=== PATIENT | female | born 2005 | race Caucasian/White ===

== ENCOUNTER 2023-09-12 12:14 | Emergency (ER) | payer OTHER, SELFPAY ==
[2023-09-12 12:18] VITALS: PULSE 116; RESP 19; O2SAT 99
--- NOTE | 2023-09-12 12:18 | DI.CT.S_ITS ---
PROCEDURE: CT HEAD/BRAIN WO CON INDICATIONS: New onset seizure TECHNIQUE: Noncontrast 4.5 mm thick angled axial sections acquired from the foramen magnum to the vertex, with coronal and sagittal reformats. For radiation dose reduction, the following was used: automated exposure control, adjustment of mA and/or kV according to patient size. COMPARISON: None. FINDINGS: Image quality: Diagnostic. CSF spaces: Basal cisterns are patent. No extra-axial fluid collections. Ventricles are normal in size and shape. Brain: No midline shift. No intracranial masses or hemorrhage. [place]-white matter interface is normal. Skull and face: Calvarium and visualized facial bones are intact, without suspicious lesions. Sinuses: Visualized sinuses and mastoids are clear. IMPRESSION: No acute intracranial pathology. Dictated by: Dell Garcia M.D. on 09/12/2023 at 13:37 Approved by: Dell Garcia M.D. on 09/12/2023 at 13:38
[2023-09-12 12:19] VITALS: BP 139/85; PULSE 115; PULSE 117; RESP 17; RESP 20; O2SAT 99; BMI 19.1
[2023-09-12 12:30] VITALS: PULSE 112; RESP 20; O2SAT 98
--- NOTE | 2023-09-12 12:31 | PC.NURSE ---
The patient was out late last night drinking and last had food at 2am. She was [place] the [employer] [place] when sig other noticed her suddenly have a smile and then started shaking. He lowered her to the ground and her shaking lasted 30-40 seconds. She regained herself and started the same episode for another 30-40 seconds. The patient denies hx of seizures. She states that she has not felt well for the last couple of days since she flew in from [place]. She states the new thing was a lip injection a couple of weeks ago that shes had before in the past with the same place and formula, with not bad reactions.
[2023-09-12 12:40] LABS: Add Manual Diff / Slide Review NO; Basophils Absolute Auto 0 /uL (0-100); Basophils Percent Auto 0.6 % (0-2); Eosinophils Absolute Auto 100 /uL (0-450); Eosinophils Percent Auto 0.9 % (2-4); Hematocrit 41.3 % (36-46); Hemoglobin 14.6 g/dL (12.0-16.0); Lymphocytes Absolute Auto 900 /uL (1100-4500); Lymphocytes Percent Auto 13.5 % (25-40); Mean Corpuscular HGB Conc 35.3 % (30-36); Mean Corpuscular Hemoglobin 33.9 PG (26-34); Mean Corpuscular Volume 96.2 fL (80-100); Monocytes Absolute Auto 500 /uL (0-900); Monocytes Percent Auto 8.1 % (3-14); Neutrophils Absolute Auto 5100 /uL (1500-7000); Neutrophils Percent Auto 76.9 % (50-75); Platelet Count 204 X10^3/uL (150-400); Red Cell Distribution Width 13.1 % (11.6-14.8); White Blood Cell Count 6.6 X10^3/uL (4.5-11.0)
--- NOTE | 2023-09-12 12:47 | ED_ITS ---
HPI - Seizure General Chief Complaint: Seizure Stated Complaint: seziure Time Seen by Provider: 09/12/23 12:17 Source: patient, EMS and other Mode of arrival: EMS History of Present Illness HPI Narrative: Patient is an otherwise healthy 17-year-old female who comes in the emergency department today by EMS for evaluation of seizure-like activity. Patient has never had a history of seizures. She was with a friend. About to [place] off [place] a [place]. Patient's friend stated that he turned around and noticed that she was walking towards him. She stated that she had a have a smile on her face. Seemed very confused. He caught her as she fell forward. He stated that she had a generalized tonic-clonic seizure that lasted approximately 45 seconds. It did seem to resolve on its own and then a very short time later had a 2nd seizure lasting approximately 30 seconds. She did not fall. Did not hit her head. Was confused afterwards. Patient states she does not remember the event. Over the past couple days she has describe some lightheadedness. Before the event did not have chest pain, headache, vision changes, shortness of breath. She did not have any episodes of bowel or urinary incontinence. Did not bite her tongue. She stated that the next thing she remembers was waking up in the back of the ambulance. Here in the emergency department she reports she was asymptomatic. Related Data Allergies Allergy/AdvReac Type Severity Reaction Status Date / Time No Known Drug Allergies Allergy Verified 09/12/23 12:25 Review of Systems Review of Systems ROS Unobtainable: All systems reviewed & are unremarkable except as noted in HPI and below Patient History Social History Smoking Status: Current every day smoker Smoking Status: Current every day smoker tobacco type: vaping alcohol intake frequency: 3 or more drinks per day Substance Use Type: does not use Exam Initial Vital Signs Initial Vital Signs: Vital Signs Pulse Rate 116 H 09/12/23 12:18 Respiratory Rate 19 09/12/23 12:18 Pulse Oximetry 99 09/12/23 12:18 Const General: cooperative, comfortable and No ill appearing HENMT Head: normal to inspection and normocephalic Resp Effort & Inspection: normal respiratory effort Auscultation: clear to auscultation bilaterally Cardio Rate: regular rate Rhythm: regular rhythm GI Inspection: normal to inspection and non-distended Skin General: no rashes or lesions noted Neuro General: patient alert, patient awake, patient oriented x3 and moves all extremities Cognition: normal cognition Speech: speech normal Gait: normal gait Extrem General: capillary refill normal Course Orders Ordered: ED Orders 09/12/23 12:18 CT head/brain wo con Stat 09/12/23 12:30 Complete Blood Count AUTO DIFF Stat Comprehensive Metabolic Panel Stat Ethanol (ETOH) Stat Lipase Stat Test Serum,Qual Stat Prolactin Stat Thyroid Stimulating Hormone Stat 09/12/23 12:54 Urinalysis and Microscopic Stat Urine Drug Screen, Rapid Stat Vital Signs Vital signs: Vital Signs - 8 hr 09/12/23 12:18 09/12/23 12:19 09/12/23 12:19 Temperature Pulse Rate 116 H 117 H 115 H Respiratory Rate 19 20 17 Blood Pressure 139/85 Pulse Oximetry 99 99 99 Oxygen Delivery Method Room Air 09/12/23 12:19 09/12/23 12:30 09/12/23 12:59 Temperature 98.4 F Pulse Rate 112 H Respiratory Rate 20 Blood Pressure 139/85 Pulse Oximetry 98 Oxygen Delivery Method 09/12/23 12:59 09/12/23 12:59 Temperature Pulse Rate 111 H Respiratory Rate 18 Blood Pressure 142/83 H Pulse Oximetry 99 Oxygen Delivery Method MDM - Seizure Lab Data Attestation: I reviewed the patient's lab results. 09/12/23 12:30 09/12/23 12:30 Labs: Lab Results 09/12/23 09/12/23 09/12/23 Range/Units 12:30 12:54 12:54 WBC 6.6 (4.5-11.0) X10^3/uL RBC 4.30 (4.0-5.2) X10^6/uL Hgb 14.6 (12.0-16.0) g/dL Hct 41.3 (36-46) % MCV 96.2 (80-100) fL MCH 33.9 (26-34) PG MCHC 35.3 (30-36) % RDW 13.1 (11.6-14.8) % Plt Count 204 (150-400) X10^3/uL Neut % (Auto) 76.9 H (50-75) % Lymph % (Auto) 13.5 L (25-40) % Phillips % (Auto) 8.1 (3-14) % Eos % (Auto) 0.9 L (2-4) % Baso % (Auto) 0.6 (0-2) % Neut # (Auto) 5100 (2228-4773) /uL Lymph # (Auto) 900 L (4502-7268) /uL Phillips # (Auto) 500 (0-900) /uL Eos # (Auto) 100 (0-450) /uL Baso # (Auto) 0 (0-100) /uL Sodium 135 L (137-145) mmol/L Potassium 4.6 (3.4-5.1) mmol/L Chloride 105 (98-107) mmol/L Carbon Dioxide 22 (22-32) mmol/L BUN 12 (7-17) mg/dL Creatinine 0.70 (0.52-1.04) mg/dL Estimated GFR > 60 (>60) mL/min BUN/Creatinine Ratio 17.1 (6-22) Glucose 96 (70-100) mg/dL Calcium 9.2 (8.4-10.2) mg/dL Total Bilirubin 0.8 (0.2-1.3) mg/dL AST 48 H (14-36) IU/L ALT 39 H (<35) IU/L Alkaline Phosphatase 57 (38-126) U/L Total Protein 7.6 (6.3-8.2) g/dL Albumin 4.7 (3.5-5.0) g/dL Globulin 2.9 (1.7-4.1) g/dL Albumin/Globulin Ratio 1.6 (1.0-2.8) Lipase 91 (23-300) U/L TSH 1.19 (0.47-4.68) uIU/mL Prolactin 35.1 H (3.0-18.6) ng/mL Serum , Qual Negative (Negative) Urine Color Yellow Urine Appearance Clear Urine pH 5.5 Normal (4.5-8.0) Ur Specific [place] 1.015 (1.000-1.035) Urine Protein Negative (Negative) Urine Glucose (UA) Negative (Negative) g/dL Urine Ketones Trace H (NEGATIVE) Urine Occult Blood Negative (Negative) Urine Nitrate Negative (Negative) Urine Bilirubin Negative (NEGATIVE) Urine Urobilinogen 1.0 (0.2) E.U./dL Ur Leukocyte Esterase Negative (NEGATIVE) Urine RBC 0-1/hpf (0-5/HPF) Urine WBC 0-1/hpf (0-5/HPF) Ur Squamous Epith Cells 1-5 /hpf (0-5/HPF) Urine Bacteria Occasional (0-1) (None) Ur Culture Indicated? Cult not indicated Vol Urine Centrifuged 10ml (spun) U Opiates 300ng/mL cut Negative (Negative) Ur Oxycodone Screen Negative (Negative) Urine Methadone Screen Negative (Negative) Ur Barbiturates Screen Negative (Negative) U Tricyclic Antidepress Negative (Negative) Ur Phencyclidine Scrn Negative (Negative) Ur Amphetamines Screen Negative (Negative) U Methamphetamines Scrn Negative (Negative) Ur MDMA Scrn (Ecstasy) Negative (Negative) U Benzodiazepines Scrn Negative (Negative) Urine Cocaine Screen Negative (Negative) U Marijuana (THC) Screen Negative (Negative) Urine Specific [place] Normal (Normal) Ethyl Alcohol < 10 ( - 10) mg/dL Ur Creatinine Normal (Normal) Imaging Data CT scan - head: Radiologist's Impression: PROCEDURE: CT HEAD/BRAIN WO CON INDICATIONS: New onset seizure TECHNIQUE: Noncontrast 4.5 mm thick angled axial sections acquired from the foramen magnum to the vertex, with coronal and sagittal reformats. For radiation dose reduction, the following was used: automated exposure control, adjustment of mA and/or kV according to patient size. COMPARISON: None. FINDINGS: Image quality: Diagnostic. CSF spaces: Basal cisterns are patent. No extra-axial fluid collections. Ventricles are normal in size and shape. Brain: No midline shift. No intracranial masses or hemorrhage. [place]-white matter interface is normal. Skull and face: Calvarium and visualized facial bones are intact, without suspicious lesions. Sinuses: Visualized sinuses and mastoids are clear. IMPRESSION: No acute intracranial pathology. MDM Narrative Medical decision making narrative: No seizure activity since arrival here in the ER. Head CT is unremarkable. Labs unremarkable. Does not appear to be a trauma process. Does not appear to be a intoxication/toxic issue. I had a long discussion with the patient regarding this. Informed her that she can not drive until she was cleared by her primary doctor/Neurology. Recommended that when she returned home that she talks with the primary doctor about a referral to see Neurology. We will hold on antiseizure medications for now. We talked about safety. She was given return precautions. She expressed understanding and agreement. Discharge Plan Departure Patient Disposition: Home Clinical Impression: Seizure-like activity Instructions: DI for Seizure (Not Epilepsy/Seizure Disorder) Activity Restrictions/Additional Instructions: No Driving until you are cleared by your primary doctor or Neurology. I do recommend that you contact your primary doctor so that when you return home you can discuss the indications for referral to see Neurology. Return to the emergency department for new symptoms. Referrals: Miscellaneous,, MD [Primary Care Provider] - Stand Alone Forms: Patient Portal/API
[2023-09-12 12:55] LABS: Pregnancy Test Serum,Qual Negative (Negative)
[2023-09-12 12:59] VITALS: BP 142/83; PULSE 111; RESP 18; TEMP 36.9; O2SAT 99; BMI 19.1
[2023-09-12 12:59] LABS: Alanine Aminotransferase 39 IU/L (<35); Albumin 4.7 g/dL (3.5-5.0); Albumin Globulin Ratio 1.6 (1.0-2.8); Alkaline Phosphatase 57 U/L (38-126); Aspartate Aminotransferase 48 IU/L (14-36); BUN Creatinine Ratio 17.1 (6-22); Bilirubin Total 0.8 mg/dL (0.2-1.3); Blood Urea Nitrogen 12 mg/dL (7-17); Calcium 9.2 mg/dL (8.4-10.2); Carbon Dioxide 22 mmol/L (22-32); Chloride 105 mmol/L (98-107); Estimated Glomerular Filt Rate > 60 mL/min (>60); Ethanol (ETOH) < 10 mg/dL; Globulin 2.9 g/dL (1.7-4.1); Glucose 96 mg/dL (70-100); HEMOLYSIS < 15 (0-50); Lipase 91 U/L (23-300); Potassium 4.6 mmol/L (3.4-5.1); Sodium 135 mmol/L (137-145); Total Protein 7.6 g/dL (6.3-8.2)
[2023-09-12 13:05] LABS: Appearance Urine UA CLEAR; Bilirubin Urine UA NEGATIVE (NEGATIVE); Color Urine UA YELLOW; Glucose Urine UA NEGATIVE (Negative); Ketones Urine UA TRACE (NEGATIVE); Leukocyte Esterase Urine UA NEGATIVE (NEGATIVE); Nitrite Urine UA NEGATIVE (Negative); Occult Blood Urine UA NEGATIVE (Negative); Protein Urine UA NEGATIVE (Negative); Specific Gravity Urine UA 1.015 (1.000-1.035)
[2023-09-12 13:16] LABS: Ur Creatinine Normal (Normal); Ur Specific Gravity Normal (Normal); Urine Amphetamines Negative (Negative); Urine Barbiturates Negative (Negative); Urine Benzodiazepines Negative (Negative); Urine Cocaine Negative (Negative); Urine MDMA Negative (Negative); Urine Methadone Negative (Negative); Urine Methamphetamines Negative (Negative); Urine Opiates Negative (Negative); Urine Oxycodone Negative (Negative); Urine Phencyclidine Negative (Negative); Urine THC Negative (Negative); Urine Tricyclic Antidepressant Negative (Negative); Urine pH Normal (Normal)
[2023-09-12 13:16] LABS: Prolactin 35.1 ng/mL (3.0-18.6)
[2023-09-12 13:19] LABS: Bacteria Urine Occasional (0-1); Culture Indicated Urine Cult Not Indicated; RBC Urine 0-1/HPF (0-5/HPF); Squamous Epithelial Cell Urine 1-5 /HPF (0-5/HPF); Urine Volume 10mL (spun); WBC Urine 0-1/HPF (0-5/HPF); pH Urine UA 5.5 (4.5-8.0)
[2023-09-12 13:29] LABS: Thyroid Stimulating Hormone 1.19 uIU/mL (0.47-4.68)
[2023-09-12 14:37] VITALS: BP 125/70; PULSE 91; RESP 14; O2SAT 97
== END 2023-09-12 14:40 | disposition home or self-care (01) ==
PROVIDERS: Emergency Provider Emergency Medicine
DX: R56.9 Unspecified convulsions (principal)
CPT/HCPCS: 36415; 70450; 80053; 80305; 80320; 81001; 83690; 84146; 84443; 84703; 85025; 99284